=== PATIENT | female | born 1985 | race African-American/Black ===

== ENCOUNTER 2017-06-13 13:53 | Emergency (ER) | payer OTHER ==
[~2017-06-13] VITALS: Ht 165.1 cm; Wt 45.4 kg
[2017-06-13 14:13] VITALS: BP 127/90
--- NOTE | 2017-06-13 14:27 | Emergency Room Report ---
History of Present Illness General Chief Complaint: Eye Problems Source: Patient Present Illness HPI 32 yo female presents to ER complaining of right eye irritation since this morning. Reports put on fake eyelashes this morning and thinks "glue" from eyelash got in her eye. Reports FB sensation. Reports rubbing her eyes continuously. Denies pain with eye movement. Denies loss of vision. Denies fever, chest pain, SOB, PEREYRA. Denies wearing contact or glasses. Allergies: Coded Allergies: No Known Allergies (Unverified , 06/13/17) Patient History Past Medical History: see triage record Last Menstrual Period: 2-14 Now: No Reviewed Nursing Documentation: PMH: Agreed; PSxH: Agreed Nursing Documentation-PMH Past Medical History: No History, Except For Hx Asthma: Yes Review of Systems All Other Systems: negative except mentioned in HPI Physical Exam Vital Signs Date Time Temp Pulse Resp B/P (MAP) Pulse Ox O2 Delivery O2 Flow Rate FiO2 06/13/17 14:03 98.1 74 16 127/90 98 Room Air 98.1 Sp02 EP Interpretation: reviewed, normal General Appearance: well appearing, no apparent distress, alert, GCS 15, non- toxic Head: normocephalic, atraumatic Eyes: right eye fluoroscene uptake - 3-4mm in 9o'clock position, right eye Scleral Injection; bilateral eye normal inspection, bilateral eye PERRL, bilateral eye other - no rust ring, no FB present ENT: hearing grossly normal, normal pharynx, no angioedema, normal voice, uvula midline, moist mucus membranes Neck: full range of motion Respiratory: lungs clear, normal breath sounds, no rhonchi, no respiratory distress, no accessory muscle use, no wheezing, speaking full sentences Cardiovascular #1: regular rate, rhythm, no edema Musculoskeletal: back normal, digits/nails normal, gait/station normal, normal range of motion, non-tender Neurologic: alert, oriented x3, responsive, motor strength/tone normal, sensory intact Psychiatric: mood/affect normal Skin: no rash Lymphatic: no adenopathy Medical Decision Making PA Attestation Dr. Torres is my supervising Physician whom patient management has been discussed with. Diagnostic Impression: Primary Impression: Corneal abrasion ER Course Pt. presents to the ED c/o eye pain. Ddx considered but are not limited to FB in eye, corneal abrasion, corneal ulcer , blepharitis, orbital blowout fracture, subconjunctival hemorrhage. Vital signs: are WNL, pt. is afebrile [facility] in nurses note, WNL. 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 ORDERS: Ophthalmic Tetracaine. Fluorescein stain of right eye ED INTERVENTIONS: PE shows injection in right eye, no eye pain, no surrounding cellulitis, no crusting. Patient has no signs of surrounding cellulitis, no pain with eye movement, does not require imaging at this time. No FB in eye. Eye washed with copious amount of normal saline. Fluorescein stain right eye. Increased uptake in 9o'clock position, no rust ring. Will treat for corneal abrasion. Tylenol provided for pain. TDAp provided DISCHARGE: - Rx provided for OCUFLOX, place 2 drops in affected eye BID for 7 days - Rx provided for Tylenol for pain At this time pt. is stable for d/c to home. Patient resting comfortably, in no acute distress, nontoxic appearing. Will provide printed patient care instructions and any necessary prescriptions. Care plan and follow up instructions have been discussed with the patient prior to discharge Follow-up with wool sorter in 24 hours. Follow-up with primary care provider in 3 -5 days. Take medications as directed. Patient questions asked and answered. ER precautions given, patient instructed to return to ER immediately for any new or worsening of symptoms. Last Vital Signs Date Time Temp Pulse Resp B/P (MAP) Pulse Ox O2 Delivery O2 Flow Rate FiO2 06/13/17 14:03 98.1 74 16 127/90 98 Room Air 98.1 Disposition: HOME, SELF-CARE Condition: Stable Scripts Acetaminophen* (TYLENOL EXTRA STRENGTH*) 500 Mg Tablet 500 MG ORAL Q8H PRN for Prn Headache/Temp > 101, #30 TAB 0 Refills Prov: Naeem Falk P.ABethany 06/13/17 Ofloxacin (OCUFLOX) 5 Ml Drops 5 ML OP BID for 7 Days, ML Prov: Naeem Falk P.Wilian 06/13/17 Referrals: Chidi LAZARO,REFERRING (PCP) Patient Instructions: Corneal Abrasion, [id number] Additional Instructions: Followup with primary care provider in 3 -5 days. Followup with ophthalmology in 1-2 days. Take medications as directed. Patient questions asked and answered. ER precautions given, patient instructed to return to ER immediately for any new or worsening of symptoms. Naeem Falk Jun 13, 2017 14:27
[2017-06-13] MEDS ORDERED: Tetracaine 0.5% Opth 4ml Soln RIGHT EYE ONE (14:30)
[2017-06-13] MEDS ORDERED: Fluorescein Strips RIGHT EYE ONE (14:30)
[2017-06-13] MEDS ORDERED: Acetaminophen 500mg (ES) tab ORAL ONE (14:30)
[2017-06-13] MEDS ORDERED: OCUFLOX5 ML OP (15:13)
[2017-06-13] MEDS ORDERED: TYLENOL EXTRA500 MG ORAL (15:13)
[2017-06-13] MEDS ORDERED: Tetanus/Diptheria/Pertussis Vaccine 0.5ml Syr IM ONE (15:15)
[2017-06-13 15:30] VITALS: BP 112/78
== END 2017-06-13 15:30 | disposition home or self-care (01) ==
LOC: EMR 14:18
DX: S05.01XA Injury of conjunctiva and corneal abrasion without foreign body, right eye, initial encounter (principal); X58.XXXA Exposure to other specified factors, initial encounter; Y92.9 Unspecified place or not applicable; Z23 Encounter for immunization; J45.909 Unspecified asthma, uncomplicated
CPT/HCPCS: 90471; 90715; 99284